=== PATIENT | female | born 1980 ===

== ENCOUNTER 2021-11-22 13:32 | Outpatient (REF) | payer OTHER, SELFPAY ==
--- NOTE | 2021-12-13 13:02 | MHC.AU.ANH ---
Adult Audiological Evaluation Date of Visit: 11/22/21 Pace Analyst Used: ASL- In Person Reason for Appointment: Patient was diagnosed with hearing loss at 1 years old. She communicates through Tuvaluan Sign Language and spoken Kiswahili. She is a long-time hearing aid user. 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 See Hearing Aid Evaluation report for more information. Diagnosis: Primary Diagnosis: H90.3 Bilateral Sensorineural Hearing Loss Signature: Provider: Parmjit Mccormack, DENNYS-A
--- NOTE | 2021-12-13 13:04 | MHC.AU.HAS ---
Hearing Aid Evaluation Date of Visit: 11/22/21 Batting Machine Operator Insulation Used: ASL- In Person Historical Information: Current personal amplification information, if applicable: Pair of Rexton BTEs, obtained in 2017 from a clinic in [place]. Summary: Patient was seen for audiological evaluation (see separate report for details). She has not been happy with her Rexton BTEs. She has not liked the sound or feel of them. Currently, the left side is very weak and the tubing on both is hardened. Attempted to change the tubing, but it was too hardened to come off the tone hook. We do not have an account with [employer] at this time; therefore, we do not have any replacement tone hooks in stock and would be unable to send the weak left instrument to [employer] for repair. Patient reports that her favorite instruments she has used in the past were RICs by Izabel. We will obtain a pair of COLOURloversv AI 1600 RICs with size 312 battery. In the meantime, patient was provided with a loaner set of instruments ([employer] V90-UP #[id number], [id number]). Her molds were retubed and attached to the loaners. Hearing Aid Prescription: Based on the individual?s shared listening needs, communication environments, dexterity, desire for connectivity, and personal preferences, the following prescription for amplification has been made: Right ear: Mailroom Personnel: [employer] Model: Evolv AI 1600 MARCO ANTONIO 312 Battery Size: 312 Color: Black Type of Mold: AP custom harbor police lieutenant Left ear: Mailroom Personnel: Izabel Model: Evolv AI 1600 MARCO ANTONIO 312 Battery Size: 312 Color: Black Type of Mold: AP custom harbor police lieutenant Action Taken/Action Needed: Earmold Impressions Taken Medical Clearance to be requested from PCP/ENT Hearing Instrument Fitting to be scheduled when materials arrive Primary Diagnosis: H90.3 Bilateral Sensorineural Hearing Loss Signature: Provider: Parmjit Mccormack, DENNYS-A
--- NOTE | 2021-12-13 13:05 | MHC.AU.HAS ---
Hearing Aid Evaluation Date of Visit: 11/22/21 Labor Standards Director Used: ASL- In Person Historical Information: Current personal amplification information, if applicable: Pair of Rexton BTEs, obtained in 2017 from a clinic in [place]. Summary: Patient was seen for audiological evaluation (see separate report for details). She has not been happy with her Rexton BTEs. She has not liked the sound or feel of them. Currently, the left side is very weak and the tubing on both is hardened. Attempted to change the tubing, but it was too hardened to come off the tone hook. We do not have an account with [employer] at this time; therefore, we do not have any replacement tone hooks in stock and would be unable to send the weak left instrument to [employer] for repair. Patient reports that her favorite instruments she has used in the past were RICs by Izabel. We will obtain a pair of Wave[employer] Mediav AI 1600 RICs with size 312 battery. In the meantime, patient was provided with a loaner set of instruments ([employer] V90-UP #[id number], [id number]). Her molds were retubed and attached to the loaners. Hearing Aid Prescription: Based on the individual?s shared listening needs, communication environments, dexterity, desire for connectivity, and personal preferences, the following prescription for amplification has been made: Right ear: Spare Parts Clerk: [employer] Model: Evolv AI 1600 MARCO ANTONIO 312 Battery Size: 312 Color: Black Type of Mold: AP custom police detention attendant Left ear: Spare Parts Clerk: Izabel Model: Evolv AI 1600 MARCO ANTONIO 312 Battery Size: 312 Color: Black Type of Mold: AP custom police detention attendant Action Taken/Action Needed: Earmold Impressions Taken. Medical Clearance to be requested from PCP/ENT. Hearing Instrument Fitting to be scheduled when materials arrive Primary Diagnosis: H90.3 Bilateral Sensorineural Hearing Loss Signature: Provider: Parmjit Mccormack, DENNYS-A
--- NOTE | 2021-12-13 13:11 | MHC.AU.MED ---
Medical Clearance for Hearing Instrumentation Date: 12/13/21 Patient Name: HELIO DUEÑAS Date of : 1980 Referring Provider: Rosa Allen MD We have seen your patient on 11/22/21 and have determined that they are a candidate for amplification (See accompanying report). Specifically, they would benefit from: Hearing aid use in both ears There is a statute that addresses Medical Evaluation Requirements prior to fitting a patient with a hearing aid. According to [place] statute 265 CMR:6.03(1), (a) General. Except as provided in 265 CMR 6.03(1)(b), a pulmonary function technologist shall not sell a hearing aid unless the prospective user has presented to the pulmonary function technologist a written statement signed by a licensed physician that states that the patient's hearing loss has been medically evaluated and the patient may be considered a candidate for a hearing aid. The medical evaluation must have taken place within the preceding six months. Please note: Due to the [place] Statute referenced above, we cannot accept a signature other than that of a licensed physician. FABRICATION AND LAYOUT CRAFTSMAN and PA signatures cannot be accepted. I am in agreement with the above recommendation. There is no medical contraindication for hearing instrumentation. Physician Signature Date Physician Name (Printed)
== END 2021-11-22 13:33 | disposition home or self-care (01) ==
LOC: HO.SH 13:32
PROVIDERS: Visit Provider Internal Medicine
DX: Z01.118 Encounter for examination of ears and hearing with other abnormal findings (principal); Z46.1 Encounter for fitting and adjustment of hearing aid; H90.3 Sensorineural hearing loss, bilateral
CPT/HCPCS: 92553; 92555; 92591; V5010; V5275

== ENCOUNTER 2022-01-13 13:38 | Outpatient (REF) | payer OTHER, SELFPAY ==
--- NOTE | 2022-01-13 14:32 | MHC.AU.HFA ---
Hearing Instrument Fitting- Adult- Binaural Date of Visit: 01/13/22 Geospatial Intelligence Analyst: ASL- In person Hearing Instruments Dispensed: Right Ear: Izabel Evolv Al 1600 MARCO ANTONIO [id number] Black Repair Warranty: 03/24/2025 Loss and Damage Warranty: 03/24/2025 Battery Size: 312 Technical Support Agent: Size 2 w/AP SnapFit Type of Mold: AP SnapFit [id number], Warranty 01/23/2024 Type of Wax Guard: Izabel HearClear Left Ear: Izabel Evolv Al 1600 MARCO ANTONIO SN [id number] Black Repair Warranty: 03/24/2025 Loss and Damage Warranty: 03/24/2025 Battery Size: 312 Technical Support Agent: Size 2 w/AP SnapFit Type of Mold: AP SnapFit mine utility operator [id number] Type of Wax Guard: Izabel HearClear Summary of Fitting: Feedback canceler run. Verifit performed and levels adjusted to better reach targets. At patient's request, increased gain by 4 steps. Patient was pleased with the sound of the instruments. The left mine utility operator appeared a little bit long; however, this could have been a result of her N95 mask pulling the ears forward. She reports that they feel comfortable and secure at the moment, and will let us know as she wears them at home if the wire needs to be shorter. Hearing aid care and maintenance discussed. Hearing aids were paired to her phone and the [employer] billy. Recommendations: Patient is an experienced hearing aid user. She will call for follow-up as needed. Diagnosis Code(s): Primary Diagnosis: H90.3 Bilateral Sensorineural Hearing Loss Signature: Provider: Parmjit Mccormack, [facility]
== END 2022-01-13 13:39 | disposition home or self-care (01) ==
LOC: HO.HAP 13:38
PROVIDERS: Visit Provider Internal Medicine
DX: Z46.1 Encounter for fitting and adjustment of hearing aid (principal); H90.3 Sensorineural hearing loss, bilateral
CPT/HCPCS: V5011; V5020; V5160; V5261; V5264; V5266